=== PATIENT | male | born 1970 | race Caucasian/White ===

== ENCOUNTER 2020-04-26 03:43 | Emergency (ER) | payer OTHER, SELFPAY ==
[~2020-04-26] VITALS: Ht 180.3 cm; Wt 79.5 kg
[~2020-04-26 03:43] MED LIST: /PROM25SU PR; CIPR25SS PO; FLAG500T PO; NICO14DI3 TD; PRIL20CA PO
[2020-04-26] MEDS ORDERED: CLON-412 (04:01)
[2020-04-26] MEDS ORDERED: OLAN5TAB (04:01)
[2020-04-26 04:28] LABS: HEMATOCRIT 44.3 % (42.0-52.0); HEMOGLOBIN 14.2 g/dl (13.5-17.5); MEAN CORPUSCULAR HEMOGLOBIN 30.4 pg (27.0-33.0); MEAN CORPUSCULAR HGB CONC 32.1 g/dl (32.0-36.5); MEAN CORPUSCULAR VOLUME 94.9 fl (80.0-96.0); PLATELET COUNT, AUTOMATED 360 10^3/uL (150-450); RED BLOOD COUNT 4.67 10^6/uL (4.30-6.10); WHITE BLOOD COUNT 10.8 10^3/uL (4.0-10.0)
[2020-04-26 05:03] LABS: AMPHETAMINES LEVEL URINE POSITIVE (NEGATIVE); BARBITURATES URINE NEGATIVE (NEGATIVE); BENZODIAZEPINES URINE NEGATIVE (NEGATIVE); CANNABINOIDS URINE POSITIVE (NEGATIVE); COCAINE METABOLITE URINE POSITIVE (NEGATIVE); METHADONE URINE NEGATIVE (NEGATIVE); OPIATES URINE NEGATIVE (NEGATIVE); PHENCYCLIDINE URINE NEGATIVE (NEGATIVE)
[2020-04-26 05:04] LABS: ACETAMINOPHEN LEVEL < 2.0 UG/ML (10.0-30.0); ALBUMIN 3.9 GM/DL (3.2-5.2); ALT/SGPT 23 U/L (12-78); BILIRUBIN,DIRECT 0.2 MG/DL (0.0-0.2); BILIRUBIN,TOTAL 0.4 MG/DL (0.2-1.0); BLOOD UREA NITROGEN 14 MG/DL (7-18); CALCIUM LEVEL 8.6 MG/DL (8.5-10.1); CARBON DIOXIDE LEVEL 29 MEQ/L (21-32); CHLORIDE LEVEL 104 MEQ/L (98-107); CREATININE FOR GFR 0.92 MG/DL (0.70-1.30); ETHYL ALCOHOL (ETHANOL) < 0.003 % (0.000-0.010); GLOMERULAR FILTRATION RATE > 60.0 (>60); GLUCOSE, FASTING 94 MG/DL (70-100); POTASSIUM SERUM 4.4 MEQ/L (3.5-5.1); SALICYLATE LEVEL 3.6 MG/DL (5.0-30.0); SODIUM LEVEL 141 MEQ/L (136-145); TOTAL PROTEIN 6.8 GM/DL (6.4-8.2)
[2020-04-26 10:23] VITALS: BP 140/76
== END 2020-04-26 10:25 | disposition home or self-care (01) ==
LOC: M ED 03:43
DX: F19.10 Other psychoactive substance abuse, uncomplicated (principal)
CPT/HCPCS: 80048; 80076; 80307; 84443; 85027; 99284; G0480

== ENCOUNTER 2024-04-12 13:19 | Inpatient (IN) | payer OTHER ==
[~2024-04-12] VITALS: Ht 180.3 cm; Wt 67.9 kg
[~2024-04-12 13:19] MED LIST changes: +ARIP1TAB4 PO; +CLON-412 PO; +MULT400T10 PO; +OLAN1TAB16 PO; +QUET50TA4 PO; +TAMS1CAP17 PO
[2024-04-12 14:03] LABS: HEMATOCRIT 42.4 % (42.0-52.0); HEMOGLOBIN 13.9 g/dl (13.5-17.5); MEAN CORPUSCULAR HGB CONC 32.8 g/dl (32.0-36.5); MEAN CORPUSCULAR VOLUME 91.6 fl (80.0-96.0); PLATELET COUNT, AUTOMATED 527 10^3/uL (150-450); RED BLOOD COUNT 4.63 10^6/uL (4.30-6.10); WHITE BLOOD COUNT 10.4 10^3/uL (4.0-10.0)
[2024-04-12 14:29] LABS: AMPHETAMINES LEVEL URINE NEGATIVE (NEGATIVE); BENZODIAZEPINES URINE NEGATIVE (NEGATIVE)
[2024-04-12 14:30] LABS: BARBITURATES URINE NEGATIVE (NEGATIVE); COCAINE METABOLITE URINE NEGATIVE (NEGATIVE); METHADONE URINE NEGATIVE (NEGATIVE); OPIATES URINE NEGATIVE (NEGATIVE); PHENCYCLIDINE URINE NEGATIVE (NEGATIVE)
[2024-04-12 14:31] LABS: ETHYL ALCOHOL (ETHANOL) 0.003 % (0.000-0.010)
[2024-04-12 14:32] LABS: CANNABINOIDS URINE POSITIVE (NEGATIVE)
[2024-04-12 14:33] LABS: SALICYLATE LEVEL < 3.0 MG/DL (<30)
[2024-04-12 14:34] LABS: ALBUMIN 3.6 G/DL (3.2-5.2); ALKALINE PHOSPHATASE 78 U/L (40-129); ALT/SGPT 21 U/L (7.0-40); AST/SGOT 20 U/L (<34); BILIRUBIN,DIRECT < 0.1 MG/DL (<0.4); BILIRUBIN,TOTAL 0.2 MG/DL (0.3-1.2); BLOOD UREA NITROGEN 11 MG/DL (9-23); CARBON DIOXIDE LEVEL 28 MMOL/L (20-31); CHLORIDE LEVEL 106 MMOL/L (98-107); CREATININE FOR GFR 0.65 MG/DL (0.70-1.30); GLOMERULAR FILTRATION RATE > 60.0 (>56); GLUCOSE, FASTING 90 MG/DL (60-100); POTASSIUM SERUM 4.5 MMOL/L (3.5-5.1); SODIUM LEVEL 142 MMOL/L (136-145)
[2024-04-12 14:38] LABS: THYROID STIMULATING HORMONE 0.785 uIU/ML (0.55-4.78)
[2024-04-12] MEDS ORDERED: HOME MED LIST COMPLETE! XX SCH (16:35)
[2024-04-13] MEDS: ACETAMINOPHEN 325 MG TAB PO ONE (05:37)
[2024-04-13] MEDS: NICOTINE 21MG/24HR 1 EA TRANSDERMAL TD ONE (09:23)
[2024-04-13 10:23] VITALS: BP 130/70; TEMP 98; O2SAT 100
[2024-04-13 17:14] VITALS: BP 132/68; TEMP 98.6; O2SAT 97
[2024-04-13] MEDS ORDERED: MOM 30ML SUSPENSION UDC PO PRN (21:15)
[2024-04-13] MEDS ORDERED: OLANZapine ORAL DISINTEGRATING TAB 5MG PO PRN (21:15)
[2024-04-13] MEDS ORDERED: diphenhydrAMINE 25MG CAP PO PRN (21:15)
[2024-04-13] MEDS ORDERED: IBUPROFEN 400MG TAB PO PRN (21:15)
[2024-04-13] MEDS ORDERED: MAALOX 30 ML SUSP *UDC PO PRN (21:15)
[2024-04-14] MEDS: ACETAMINOPHEN 325 MG TAB PO PRN (02:06)
[2024-04-14 06:42] VITALS: BP 110/72; TEMP 97.7; O2SAT 97
[2024-04-14] MEDS: NICOTINE 14 MG/24 HR TRANSDERMAL TD SCH (08:32)
[2024-04-14] MEDS: FLUBLOK(EGGFREE) TRIVAL(24-25) VACCINE PF 0.5ML SYRINGE 18YRS & OLDER IM.IMMUN ONE (08:33)
[2024-04-14] MEDS: CLOTRIMAZOLE 1% TOPICAL CREAM 30GM TOP SCH (11:43)
[2024-04-14 15:22] VITALS: BP 131/84; TEMP 98.2; O2SAT 96
[2024-04-14] MEDS: PALIPERIDONE 3MG ER TAB (INVEGA) PO SCH (20:21)
[2024-04-15 06:41] VITALS: BP 113/76; TEMP 98; O2SAT 98
[2024-04-15 06:56] LABS: CHOLESTEROL RISK RATIO 3.89 (<5); HDL CHOLESTEROL 39.8 MG/DL (>40); LDL CHOLESTEROL 90.2 MG/DL (<100); NON-HDL-C 115.2 MG/DL
[2024-04-15 07:37] LABS: HEMOGLOBIN A1c 5.3 % (4.0-6.0)
[2024-04-15 15:43] VITALS: BP 139/80; TEMP 98.5; O2SAT 96
[2024-04-16 06:28] VITALS: BP 130/63; TEMP 97.3; O2SAT 98
[2024-04-16] MEDS: AUGMENTIN 875 MG TAB PO SCH (11:58)
[2024-04-16] MEDS: SODIUM CHLORIDE NASAL 0.65% SPRAY BTL (OCEAN) SCH (11:59)
[2024-04-16] MEDS: FLUTICASONE PROP 0.05% NASAL SPRAY 16 GM (FLONASE) NARES SCH (11:59)
[2024-04-16 15:23] VITALS: BP 133/89; TEMP 98.5; O2SAT 97
[2024-04-17 06:37] VITALS: BP 147/70; TEMP 98; O2SAT 97
[2024-04-17 15:54] VITALS: BP 119/81; TEMP 98.2; O2SAT 96
[2024-04-17] MEDS: PALIPERIDONE PAL 234MG/1.5ML INJ (INVEGA)(FREE PSY INPT ONLY) IM ONE (18:12)
[2024-04-17] MEDS: traZODone 50 MG TAB PO PRN (20:14)
[2024-04-18 06:34] VITALS: BP 140/83; TEMP 97; O2SAT 97
[2024-04-18] MEDS ORDERED: PALI1TAB2 PO (10:08)
[2024-04-18] MEDS ORDERED: INVE156I IM (10:08)
== END 2024-04-18 11:46 | disposition home or self-care (01) | DRG 751 ==
LOC: M ED 13:19 → M ED INP 04-13 09:38 → M PSY 04-13 10:29
PROVIDERS: ADMIT Psychiatry & Neurology Psychiatry; ATTEND Psychiatry & Neurology Psychiatry
DX: F29 Unspecified psychosis not due to a substance or known physiological condition (principal); F17.210 Nicotine dependence, cigarettes, uncomplicated; J32.9 Chronic sinusitis, unspecified; J34.2 Deviated nasal septum

== ENCOUNTER → 2024-05-07 | Day surgery (SDC) | payer OTHER ==
[~2024-05-07] VITALS: Ht 180.3 cm; Wt 75.7 kg
[~2024-05-07] MED LIST changes: +INVE156I IM; +LR 1,000 ML IV SCH; +PALI1TAB2 PO
[2024-05-07 09:04] VITALS: BP 140/72; TEMP 98.4; O2SAT 96
== END | disposition home or self-care (01) ==
LOC: M SDC 08:33
PROVIDERS: ATTEND Otolaryngology
DX: J34.2 Deviated nasal septum (principal); Z53.09 Procedure and treatment not carried out because of other contraindication

== ENCOUNTER → 2024-06-28 | Outpatient (CLI) | payer OTHER ==
[~2024-06-28] MED LIST changes: -LR 1,000 ML IV SCH
== END ==
LOC: M PLAIMG 14:53
PROVIDERS: ATTEND Otolaryngology
DX: J32.8 Other chronic sinusitis (principal)

== ENCOUNTER 2024-07-30 10:57 | Day surgery (SDC) | payer OTHER ==
[~2024-07-30] VITALS: Ht 182.9 cm; Wt 78.2 kg
[~2024-07-30 10:57] MED LIST changes: +ALBU8.5H; +CLOT1CRE56; +GABA-1171 PO; +NICO21DI37; +TERB250T91 PO
[2024-07-30] MEDS ORDERED: LR 1,000 ML IV SCH ×3 (11:20→15:15)
[2024-07-30] MEDS: ALBUTEROL SULFATE 2.5MG/0.5ML INH CONCENTRATE NEB SOLN NEB ONE (11:59)
[2024-07-30] MEDS ORDERED: HYDROmorphone HCL 2MG/ML 1ML VIAL As Ordered ONE (12:34)
[2024-07-30] MEDS ORDERED: LIDOCAINE 2% 100MG/5ML SDV (FOR ANES.) As Ordered ONE (12:35)
[2024-07-30] MEDS ORDERED: propofoL 200 MG/20 ML VIAL As Ordered ONE (12:35)
[2024-07-30] MEDS ORDERED: ACETAMINOPHEN 1000MG/100ML IV BAG As Ordered ONE (12:35)
[2024-07-30] MEDS ORDERED: fentaNYL 100 MCG/2 ML INJECTION As Ordered ONE (12:35)
[2024-07-30] MEDS ORDERED: MIDAZOLAM INJ 2MG/2ML VIAL As Ordered ONE (12:35)
[2024-07-30] MEDS ORDERED: ONDANSETRON 4MG 2ML VIAL As Ordered ONE (12:36)
[2024-07-30] MEDS ORDERED: ROCURONIUM BROMIDE 50MG/5ML VIAL As Ordered ONE (12:37)
[2024-07-30] MEDS ORDERED: SUGAMMADEX SODIUM 500 MG/5 ML VIAL (BRIDION) As Ordered ONE (12:37)
[2024-07-30] MEDS: COCAINE 4% 4ML NASAL SOLUTION BTL As Ordered ONE (13:03)
[2024-07-30] MEDS ORDERED: PHENYLephrine 500MCG 5ML (100MCG/ML) SYRINGE As Ordered ONE (13:08)
[2024-07-30] MEDS ORDERED: ePHEDrine SULFATE 25 MG/5 ML(5MG/ML) SYRINGE As Ordered ONE (13:40)
[2024-07-30] MEDS: OXYMETAZOLINE 0.05% NASAL SPRAY As Ordered ONE (14:00)
[2024-07-30] MEDS: LIDOCAINE W/EPINEPHRINE 1% 20ML VIAL As Ordered ONE (14:00)
[2024-07-30] MEDS ORDERED: HYDROMORPHONE HCL 0.5 MG/ 0.5 ML SYRINGE IV PRN (14:25)
[2024-07-30] MEDS ORDERED: fentaNYL 100 MCG/2 ML INJECTION IV PRN (14:25)
[2024-07-30] MEDS ORDERED: ANEXSIA, NORCO 7.5MG/325MG TABLET(HYDROCODONE/APAP) PO PRN (15:15)
[2024-07-30] MEDS: oxyCODONE 5MG TAB PO PRN (15:22)
[2024-07-30] MEDS: ONDANSETRON 4MG 2ML VIAL IV PRN (15:42)
[2024-07-30 15:47] VITALS: BP 130/81; TEMP 98.9; O2SAT 94
== END 2024-07-30 16:09 | disposition home or self-care (01) ==
LOC: M SDC 10:57
PROVIDERS: ATTEND Otolaryngology
DX: J32.1 Chronic frontal sinusitis (principal); J32.0 Chronic maxillary sinusitis; J32.2 Chronic ethmoidal sinusitis; J34.2 Deviated nasal septum; J34.3 Hypertrophy of nasal turbinates; J43.1 Panlobular emphysema; G62.9 Polyneuropathy, unspecified; Z79.899 Other long term (current) drug therapy; F17.210 Nicotine dependence, cigarettes, uncomplicated; Z90.49 Acquired absence of other specified parts of digestive tract
CPT/HCPCS: 30140; 30520; 31254; 31267; 31276; 61782; 88305; 88311; C9143; J0131; J1100; J1171; J2250; J2371; J2405; J3010